=== PATIENT | male | born 1995 | race Caucasian/White ===

== ENCOUNTER 2022-12-24 20:19 | Emergency (ER) | payer OTHER ==
[~2022-12-24] VITALS: Ht 170.2 cm; Wt 64.0 kg
[2022-12-24 20:31] VITALS: BP 122/73; O2SAT 98
[2022-12-24] MEDS ORDERED: LIDOCAINE HCL/PF 1% 10 MG/ML 5ML VIAL INFIL ONE (23:00)
[2022-12-24] MEDS ORDERED: TETANUS, DIPHTHERIA, PERTUSSIS VAC/PF 0.5ML (>10YR OLD) IM ONE (23:00)
[2022-12-25 00:08] VITALS: PULSE 82; RESP 16; TEMP 98.5
== END 2022-12-25 00:10 | disposition home or self-care (01) ==
LOC: ER 20:19
DX: S51.812A Laceration without foreign body of left forearm, initial encounter (principal); W26.0XXA Contact with knife, initial encounter; Y93.89 Activity, other specified; Y92.89 Other specified places as the place of occurrence of the external cause; Y99.8 Other external cause status
CPT/HCPCS: 90715; 12001; 90471; 99283; J3490; Z7610 ×2

== ENCOUNTER 2023-11-07 22:05 | Emergency (ER) | payer MEDICAID, OTHER ==
[~2023-11-07] VITALS: Ht 170.2 cm; Wt 82.0 kg
[2023-11-07 22:45] VITALS: O2SAT 100
[2023-11-07 23:32] LABS: BASOPHILS % 0.5 % (0.0-2.0); EOSINOPHILS % 0.6 % (0.0-5.0); HEMATOCRIT. 46.2 % (42.0-52.0); HEMOGLOBIN. 15.6 g/dL (14.0-18.0); LYMPHOCYTES % 12.1 % (20.0-50.0); MEAN CORPUSCULAR HEMOGLOBIN 30.5 pg (28.0-32.0); MEAN CORPUSCULAR HGB CONC 33.8 g/dL (31.0-37.0); MEAN CORPUSCULAR VOLUME 90.4 fL (80.0-94.0); MEAN PLATELET VOLUME 8.1 fl (7.4-10.4); MONOCYTES % 5.6 % (2.0-8.0); NEUTROPHILS % 81.2 % (40.0-76.0); PLATELET 341 x1000/uL (130-400); RED BLOOD CELL COUNT 5.11 mill/uL (4.7-6.1); RED CELL DISTRIBUTION WIDTH 13.1 % (11.6-14.6); WHITE BLOOD COUNT 12.6 x1000/uL (4.5-11.0)
[2023-11-07 23:38] LABS: CHLORIDE 102 mEq/L (98-107); POTASSIUM 3.2 mEq/L (3.5-5.1); SODIUM 139 mEq/L (136-145)
[2023-11-07 23:39] LABS: CALCIUM 10.1 mg/dL (8.7-10.4); CARBON DIOXIDE 28 mEq/L (21-32)
[2023-11-07 23:44] LABS: GLUCOSE 109 mg/dL (70-105); UREA NITROGEN BLOOD 8 mg/dL (9-23)
[2023-11-07 23:46] LABS: ALANINE AMINOTRANSFERASE 16 IU/L (10-49); ALBUMIN 5.2 g/dL (3.2-4.8); ASPARTATE AMINOTRANSFERASE 19 IU/L (<34); BILIRUBIN DIRECT 0.5 mg/dL (<=3.0); BILIRUBIN TOTAL 1.7 mg/dL (0.1-1.0); PROTEIN TOTAL 7.7 g/dL (6.0-8.3)
[2023-11-08] MEDS: ONDANSETRON HCL 4MG/2ML INJ IV ONE (04:05)
[2023-11-08] MEDS: SODIUM CHLORIDE 0.9% 500 ML IV ONE (04:16)
[2023-11-08] MEDS: ACETAMINOPHEN 1000MG/100ML 100 ML IV ONE (04:44)
[2023-11-08] MEDS: IOHEXOL-300 100 ML BOTTLE ONE (05:03)
[2023-11-08 05:29] LABS: CLARITY URINE CLEAR (CLEAR); COLOR URINE YELLOW (YELLOW); GLUCOSE URINE NEGATIVE (NEGATIVE); KETONES URINE TRACE (NEGATIVE); LEUKOCYTE ESTERASE URINE NEGATIVE (NEGATIVE); NITRITE URINE NEGATIVE (NEGATIVE); OCCULT BLOOD URINE NEGATIVE (NEGATIVE); PROTEIN URINE 1+ (NEGATIVE); SPECIFIC GRAVITY URINE 1.062 (1.005-1.030)
[2023-11-08] MEDS ORDERED: NAPR-1074 MT (05:59)
[2023-11-08] MEDS ORDERED: ONDA4TAB50 MT (06:05)
[2023-11-08 06:46] LABS: RBC URINE NONE SEEN /hpf (0-2); WBC URINE 0-2 /hpf (0-2)
[2023-11-08 06:47] LABS: BACTERIA URINE NONE SEEN; SQUAMOUS EPITHELIAL CELL URINE NONE SEEN /lpf (RARE/1+)
[2023-11-08 07:19] VITALS: BP 98/58; PULSE 58; RESP 13; TEMP 98.7
== END 2023-11-08 07:24 | disposition home or self-care (01) ==
LOC: ER 22:05
DX: S30.1XXA Contusion of abdominal wall, initial encounter (principal); V49.49XA Driver injured in collision with other motor vehicles in traffic accident, initial encounter; Y93.89 Activity, other specified; Y92.89 Other specified places as the place of occurrence of the external cause; Y99.8 Other external cause status
CPT/HCPCS: 80076; 80048; 83690; 85025; 86850; 86900; 86901; 36415; 99285; 81003; 74177; 96365; 96375; Q9967; J2405; J7040; Z7610 ×2; J0131

== ENCOUNTER 2023-11-08 23:15 | Emergency (ER) | payer MEDICAID, OTHER ==
[~2023-11-08] VITALS: Ht 172.7 cm; Wt 82.0 kg
[~2023-11-08 23:15] MED LIST: NAPR-1074 MT; ONDA4TAB50 MT
[2023-11-08 23:38] VITALS: BP 130/67; PULSE 82; RESP 18; TEMP 98; O2SAT 100
== END 2023-11-08 23:56 | disposition left against medical advice (07) ==
LOC: ER 23:29
DX: R10.9 Unspecified abdominal pain (principal); Z53.21 Procedure and treatment not carried out due to patient leaving prior to being seen by health care provider